=== PATIENT | male | born 1990 | race Caucasian/White ===

== ENCOUNTER 2022-04-09 04:30 | Emergency (ER) | payer OTHER, SELFPAY ==
[2022-04-09 04:38] VITALS: BP 151/100; PULSE 126; RESP 22; TEMP 37.5; O2SAT 96
[2022-04-09 05:16] LABS: Influenza A QL RT-PCR Positive (Negative); Influenza B QL RT-PCR Negative (Negative); SARS-CoV-2 RNA PCR Negative
--- NOTE | 2022-04-09 05:27 | ED.GENADULT ---
HPI - General Adult General Chief complaint: Upper Respiratory Infection Stated complaint: upper respiratory Time Seen by Provider: 04/09/22 05:20 History of Present Illness HPI narrative: Patient 31-year-old gentleman presents to the emergency department with chief complaint of flulike symptoms. Patient reports that on Friday he had a little bit of a sore/scratchy throat but on Friday started having body aches and fevers. The patient states he last took Tylenol around midnight and reports that he has had some sweats and chills. Patient reports this feels similar to whenever he has had COVID in the past. Related Data Allergies Allergy/AdvReac Type Severity Reaction Status Date / Time No Known Drug Allergies Allergy Unknown Unverified 08/23/14 03:39 Review of Systems Review of Systems: A 10 system review of systems was completed on the patient and is negative except for what is stated in the HPI. Nursing and ancillary documentation was reviewed. PMFSH Comments Prior history of leukemia COVID x2 Exam Narrative: GENERAL: Well-appearing, well-nourished, and in no acute distress. HEAD: Normocephalic, atraumatic. EYES: PERRLA and EOMI. ENT: Nares clear, no rhinorrhea or epistaxis. Mucous membranes moist. NECK: Supple. CHEST: Clear to auscultation. No respiratory distress. HEART: Regular rate and rhythm. No murmur heard. Normal peripheral pulses. ABDOMEN: Soft, nontender, nondistended, normal active bowel sounds. EXTREMITIES: Normal range of motion. No edema. SKIN: Warm, dry, no rash. NEURO: No focal deficits. Alert and oriented x3. PSYCH: Normal mood and affect. Course Course Emergency Course: Patient's heart rate has come down with IV fluids in the 1 teens. Laboratory studies show normal white blood cell count normal hemoglobin and normal platelet count. Patient received a gram of Tylenol IV and also received a liter of normal saline he is feeling somewhat better the patient was offered a prescription for Tamiflu but the patient has opted out against doing antivirals. Vital Signs Vital signs: Vital Signs Temperature 37.5 C 04/09/22 04:38 Pulse Rate 126 H 04/09/22 04:38 Respiratory Rate 22 H 04/09/22 04:38 Blood Pressure 151/100 H 04/09/22 04:38 Pulse Oximetry 96 04/09/22 04:38 Oxygen Delivery Room Air 04/09/22 04:38 Temperature 38.1 C H 04/09/22 06:23 Pulse Rate 126 H 04/09/22 04:38 Respiratory Rate 22 H 04/09/22 04:38 Blood Pressure 151/100 H 04/09/22 04:38 Pulse Oximetry 96 04/09/22 04:38 Oxygen Delivery Room Air 04/09/22 04:38 Medical Decision Making Vital Signs Vital Signs: Vital Signs Temperature 37.5 C 04/09/22 04:38 Pulse Rate 126 H 04/09/22 04:38 Respiratory Rate 22 H 04/09/22 04:38 Blood Pressure 151/100 H 04/09/22 04:38 Pulse Oximetry 96 04/09/22 04:38 Oxygen Delivery Room Air 04/09/22 04:38 Temperature 38.1 C H 04/09/22 06:23 Pulse Rate 126 H 04/09/22 04:38 Respiratory Rate 22 H 04/09/22 04:38 Blood Pressure 151/100 H 04/09/22 04:38 Pulse Oximetry 96 04/09/22 04:38 Oxygen Delivery Room Air 04/09/22 04:38 Lab Data 04/09/22 05:48 04/09/22 05:48 Labs: Lab Results 04/09/22 04/09/22 04/09/22 Range/Units 04:35 05:48 05:48 WBC 6.1 (4.5-10.0) K/mm3 RBC 5.05 (4.6-6.20) M/mm3 Hgb 16.0 (14.0-18.0) g/dL Hct 45.8 (42.0-52.0) % MCV 90.7 (80-100) fl MCH 31.7 (26-34) pg MCHC 34.9 (32-36) g/dl RDW 11.5 (11.5-14.5) % Plt Count 170 (150-375) k/mm3 MPV 10.8 H (7.4-10.4) fl Immature Gran % (Auto) 0.2 (0-0.5) % Neut % (Auto) 75.5 H (45.5-73.1) % Lymph % (Auto) 12.6 L (18.3-44.2) % [place] % (Auto) 9.4 H (2.6-8.5) % Eos % (Auto) 1.8 (0-4.4) % Baso % (Auto) 0.5 (0.2-1.2) % Lymph # (Auto) 0.76 L (0.9-3.2) K/mm3 [place] # (Auto) 0.6 (0.1-0.6) K/mm3 Eos # (Auto) 0.1 (0-0.3) K/mm3 Baso # (Auto) 0.0 (0.
[2022-04-09 05:59] LABS: Basophils Percent Auto 0.5 % (0.2-1.2); Eosinophils Absolute Auto 0.1 K/mm3 (0-0.3); Eosinophils Percent Auto 1.8 % (0-4.4); Hematocrit 45.8 % (42.0-52.0); Immature Granulocyte Absolute 0.01 K/mm3 (0.00-0.031); Immature Granulocyte Percent A 0.2 % (0-0.5); Lymphocytes Absolute Auto 0.76 K/mm3 (0.9-3.2); Lymphocytes Percent Auto 12.6 % (18.3-44.2); Mean Corpuscular HGB Conc 34.9 g/dl (32-36); Mean Corpuscular Hemoglobin 31.7 pg (26-34); Mean Corpuscular Volume 90.7 fl (80-100); Mean Platelet Volume 10.8 fl (7.4-10.4); Monocytes Absolute Auto 0.6 K/mm3 (0.1-0.6); Monocytes Percent Auto 9.4 % (2.6-8.5); Neutrophils Absolute Auto 4.6 K/mm3 (1.3-6.7); Neutrophils Percent Auto 75.5 % (45.5-73.1); Platelet Count Result 170 k/mm3 (150-375); Red Blood Count 5.05 M/mm3 (4.6-6.20); Red Cell Distribution Width 11.5 % (11.5-14.5); White Blood Count 6.1 K/mm3 (4.5-10.0)
[2022-04-09] MEDS: SODIUM CHLORIDE 0.9% IV 1,000 ML 999 ML IV CONT (06:06)
[2022-04-09 06:13] LABS: Alanine Aminotransferase 47 U/L (6-50); Albumin Level 4.9 g/dL (3.5-5.1); Alkaline Phosphatase 71 U/L (38-126); Anion Gap 11 mmol/L (8-16); Aspartate Amino Transferase 37 U/L (17-59); Bilirubin,Total 0.9 mg/dL (0.2-1.3); Blood Urea Nitrogen 10 mg/dL (9-20); Calcium 9.4 mg/dL (8.4-10.2); Carbon Dioxide 27 mmol/L (22-30); Chloride 97 mmol/L (98-107); Estimated CRCL calculation 107 ml/min; Estimated Glomerular Filt Rate > 60; Glucose 99 mg/dL (65-110); Potassium 3.9 mmol/L (3.4-5.0); Sodium 135 mmol/L (137-145)
[2022-04-09 06:23] VITALS: TEMP 38.1
[2022-04-09 06:52] VITALS: BP 115/76; PULSE 100; RESP 20; TEMP 37.6; O2SAT 100
== END 2022-04-09 06:54 | disposition home or self-care (01) ==
PROVIDERS: Emergency Provider Emergency Medicine; PCP Family Medicine
DX: J10.1 Influenza due to other identified influenza virus with other respiratory manifestations (principal); Z20.822 Contact with and (suspected) exposure to COVID-19; Z85.6 Personal history of leukemia; Z86.16 Personal history of COVID-19
CPT/HCPCS: 36415; 80053; 85025; 87636; 96365; 99284; J0131; J7030

== ENCOUNTER 2024-10-01 13:12 | Observation (INO) | payer OTHER, SELFPAY ==
[2024-10-01] VITALS (25 sets, daily range): BP systolic 99–130; BP diastolic 60–99; PULSE 83–166; RESP 13–31; TEMP 36.8–37.2; O2SAT 94–100; BMI 36.4
--- NOTE | ~2024-10-01 | XR_ITS ---
CHEST RADIOGRAPH, PA AND LATERAL CLINICAL HISTORY: palpitations . COMPARISON: None available TECHNIQUE: PA and lateral views of the chest. FINDINGS The cardiomediastinal silhouette is unremarkable. Increased interstitial markings within the right lung base for which prior scarring is suspected. The remainder of the lungs are clear. IMPRESSION: No focal infiltrate or effusion. Reviewed, dictated and finalized at location A.
--- NOTE | 2024-10-01 13:14 | ECG_ITS ---
Test Date: 2024-10-01 13:27:43 Measurements Intervals [place] Rate: 170 P: 0 [place]: 0 QRS: 47 QRSD: 72 T: -19 QT: 240 QTc: 405 Interpretive Statements ATRIAL FIBRILLATION WITH RAPID VENTRICULAR RESPONSE NONSPECIFIC T-WAVE ABNORMALITY No previous ECG available for comparison Electronically Signed On 10-01-2024 15:11:00 CDT by Jerrod Flannery M.D.
--- OUTSIDE RECORDS SUMMARY | 2024-10-01 13:14 | XMS_ITS | Referral Summary ---
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 Plant Production Worker Name Role Phone MocaBrian segovia Primary Care Provider Encounters Date Type Department Care Team Description 08/09/2024 11:30 AM CDT Office Visit [facility] Hand Surgery [address] [place] [phone] Harris Andrews MD De Quervain's disease (radial styloid tenosynovitis) (Primary Dx); Right carpal tunnel syndrome 08/03/2024 10:00 AM CDT Therapy [facility] Physical Therapy [address] [place] [phone] Right carpal tunnel syndrome; Left carpal tunnel syndrome 07/19/2024 8:14 AM CDT - 07/19/2024 11:59 PM CDT Hospital Encounter [facility] Di[facility] [address] [place] [address] Bilateral wrist pain Discharge Disposition: Discharge to home or self care 07/19/2024 8:15 AM CDT Office Visit [facility] Hand Surgery [address] [place] [phone] Harris Andrews MD Bilateral wrist pain (Primary Dx); Bilateral carpal tunnel syndrome; Right carpal tunnel syndrome; Left carpal tunnel syndrome; De Quervain's disease (radial styloid tenosynovitis) from Last 3 Months Allergies No known active allergies Medications amLODIPine (NORVASC) 5 mg tabletIndication s:Hypertension, essential Take 1 tablet (5 mg total) by mouth daily 90 tablet 3 06/29/2024 Active Active Problems Problem Noted Date Diagnosed Date Left carpal tunnel syndrome 07/19/2024 Right carpal tunnel syndrome 07/19/2024 De Quervain's disease (radial styloid tenosynovi tis) 07/19/2024 Routine physical examination 06/29/2024 Overview (06/29/2024): June 29, 2024 Hypertension, essential 06/29/2024 Overview (06/29/2024): New diagnosis: June 2024 Starting Norvasc AML (acute myeloid leukemia) in remission 2024 Overview (06/29/2024): Acute myelogenous leukemia, subtype M2, diagnosed in August 2009, 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 TREATMENT: Induction with 7 + 3; consolidation with 4 cycles of high-dose dave-C completed in January 2010 He had 5 year f/u with Oncology and has been released Immunizations Immunization Administration Dates Next Due Influenza, Split 03/05/2011 Influenza, Trivalent, IM (MDV) 02/16/2008 Influenza, Trivalent, Preser vative Free, Intramuscular 05/18/2012,04/13/2010 Influenza, Unspecified 06/29/2024(Deferr ed: Patient Refused),08/02/2023(Deferred: Patient Refused) Tdap 06/13/2024 Social History Tobacco Use Types Packs/Day Years Used Date Smoking Tobacco: Never Smokeless Tobacco: Never Tobacco Cessation:Counseling Given: Not Answered Alcohol Use Standard Drinks/Week Comments Yes 0 (1 standard drink = 0.6 oz pur e alcohol) AUDIT-C Answer Date Recorded Q1: How often do you have a drink containing alc ohol? 2-4 times a month 06/29/2024 Q2: How many drinks containi ng alcohol do you have on a typical day when you are drinking? 1 or 2 06/29/2024 Q3: How often do you have si x or more drinks on one occasion? 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 Gender Identity Not on file Sexual Orientation Not on file Last Filed Vital Signs Vital Sign Reading Time Taken Comments Blood Pressure 136/92 06/29/2024 11:00 AM AUTOMOBILE GLASS TECHNICIAN Pulse 79 06/29/2024 11:00 AM AUTOMOBILE GLASS TECHNICIAN Temperature 36.3 C (97.4 F) 06/29/2024 11:00 AM AUTOMOBILE GLASS TECHNICIAN Respiratory Rate 18 06/29/2024 11:00 AM AUTOMOBILE GLASS TECHNICIAN Oxygen Saturation 98% 06/29/2024 11:00 AM AUTOMOBILE GLASS TECHNICIAN Inhaled Oxygen Concentration - - Weight 107 kg (236 lb) 06/29/2024 11:00 AM AUTOMOBILE GLASS TECHNICIAN Height 172.7 cm (5' 8) 06/29/2024 11:00 AM AUTOMOBILE GLASS TECHNICIAN Body Mass Index 35.88 06/29/2024 11:00 AM AUTOMOBILE GLASS TECHNICIAN Plan of Treatment Not on file Procedures Procedure Name Priority Date/Time Associated Diagnosis Comments XR WRIST RIGHT 3 OR MORE VIEWS Schedule Routine, Read Routine (OP Routine) 07/19/2024 8:19 AM CDT Bilateral wrist pain XR WRIST LEFT 3 OR MORE VIEWS Schedule Routine, Read Routine (OP Routine) 07/19/2024 8:19 AM CDT Bilateral wrist pain CT INJECTION 1 TENDON SHEATH/LIGAMENT APONEUROSIS Routine 07/19/2024 8:15 AM CDT Right carpal tunnel syndrome Left carpal tunnel syndrome HEPATITIS C ANTIBODY Routine 06/29/2024 11:53 AM AUTOMOBILE GLASS TECHNICIAN Need for hepatitis C screening test from Last 3 Months or Most Recently Relevant to Health Maintenance Results * XR Wrist Right 3 or More Views (07/19/2024 8:19 AM CDT) Anatomical Region Laterality Modality Upper Extremities, Wrist Right Compute d Radiography 07/23/2024 5:39 AM CDT Narrative 07/23/2024 5:39 AM CDT EXAM DESCRIPTION: XR WRIST RIGHT 3 OR MORE VIEWS REASON FOR STUDY: Right wrist pain TECHNIQUE: AP lateral and oblique radiographic view(s) of the right wrist . COMPARISON: None FINDINGS: BONES/JOINTS: There is no acute fracture, malalignment or osseous abnormality. The joint spaces are normal. SOFT TISSUES: Within normal limits. IMPRESSION: No acute osseous abnormality. THIS IS AN ELECTRONICALLY VERIFIED FINAL REPORT 07/23/2024 5:39 AM - Electronically signed by Harris Andrews T: Report ID: [id number] Reading Location: [place] [address] Procedure Note Harris Andrews MD - 07/23/2024 EXAM DESCRIPTION: XR WRIST RIGHT 3 OR MORE VIEWS REASON FOR STUDY: Right wrist pain TECHNIQUE: AP lateral and oblique radiographic view(s) of the rightwrist . COMPARISON: None FINDINGS: BONES/JOINTS: There is no acute fracture, malalignment orosseous abnormality. The joint spaces are normal. SOFT TISSUES: Within normal limits. IMPRESSION: No acute osseous abnormality. THIS IS AN ELECTRONICALLY VERIFIED FINAL REPORT 07/23/2024 5:39 AM - Electronically signed by Harris Andrews T: Report ID: [id number] Reading Location: [place] [address] Harris Andrews MD IMG XR PROCEDURES Final Result * XR Wrist Left 3 or More Views (07/19/2024 8:19 AM CDT) Anatomical Region Laterality Modality Upper Extremities, Wrist Left Compute d Radiography 07/23/2024 5:39 AM CDT Narrative 07/23/2024 5:39 AM CDT EXAM DESCRIPTION: XR WRIST LEFT 3 OR MORE VIEWS REASON FOR STUDY: Left wrist pain TECHNIQUE: AP lateral and oblique radiographic view(s) of the left wrist . COMPARISON: None FINDINGS: BONES/JOINTS: There is no acute fracture, malalignment or osseous abnormality. The joint spaces are normal. SOFT TISSUES: Within normal limits. IMPRESSION: No acute osseous abnormality. THIS IS AN ELECTRONICALLY VERIFIED FINAL REPORT 07/23/2024 5:39 AM - Electronically signed by Harris Andrews TL T: Report ID: [id number] Reading Location: [place] [address] Procedure Note Harris Andrews MD - 07/23/2024 EXAM DESCRIPTION: XR WRIST LEFT 3 OR MORE VIEWS REASON FOR STUDY: Left wrist pain TECHNIQUE: AP lateral and oblique radiographic view(s) of the left wrist. COMPARISON: None FINDINGS: BONES/JOINTS: There is no acute fracture, malalignment orosseous abnormality. The joint spaces are normal. SOFT TISSUES: Within normal limits. IMPRESSION: No acute osseous abnormality. THIS IS AN ELECTRONICALLY VERIFIED FINAL REPORT 07/23/2024 5:39 AM - Electronically signed by Harris Andrews TL T: Report ID: [id number] Reading Location: [place] [address] Harris Andrews MD IMG XR PROCEDURES Final Result * CT INJECTION 1 TENDON SHEATH/LIGAMENT APONEUROSIS (07/19/2024 8:15 AM CDT) Harris Jose MD - 07/19/2024 8:15 AM CDT Harris Andrews MD 07/19/2024 9:06 AM De Queraldo's injection: R extensor compartment 1 Performed by: Harris Andrews MD Authorized by: Harris Andrews MD De Quervain's Injection: Consent Given by: Patient Site marked: the procedure site was marked Timeout: prior to procedure the correct patient, procedure, and site was verified Verbal consent obtained?: Yes Supporting Documentation: Indications: Tendon swelling and pain Procedure Details: Condition: de Quervain's Site: R extensor compartment 1 Prep: patient was prepped and draped in usual sterile fashion Needle Size: 22 G Approach: Radial Ultrasound guidance: No Medications: 80 mg triamcinolone 40 mg/mL; 6 mL lidocaine 10 mg/mL (1 %) us Harris Andrews MD IN CLINIC/BEDSIDE ORDERA BLES Final Result * Hepatitis C antibody Blood (06/29/2024 11:53 AM AUTOMOBILE GLASS TECHNICIAN) Hep C Ab Nonreactive Nonreactive Comment: Antibodies to HCV not detected. Does NOT exclude the possibility of recent exposure to HCV. Current interpretive data was last revised on 22 Interpretive Data Nonreactive: Antibodies to HCV not detected. Does NOT exclude the possibility of recent exposure to HCV. Equivocal: Equivocal for HCV antibodies. Supplemental molecular testing will be automatically performed to determine infection status in accordance with current CDC screening recommendations. Reactive: Positive for HCV antibodies. This may represent current or past HCV infection. Supplemental molecular testing will be automatically performed to determine current infection status in accordance with current CDC screening recommendations. Interpretive data was last revised on 2019. Blood 06/29/2024 11:5 3 AM AUTOMOBILE GLASS TECHNICIAN 06/29/2024 2:36 PM AUTOMOBILE GLASS TECHNICIAN us Brian Velasco DO LAB MICROBIOLOGY - GEN ERAL ORDERABLES Final Result ZANDRA [id number] [facility] Department [place] [address] from Last 3 Months or Most Recently Relevant to Health Maintenance Insurance [employer] [facility] [employer] Address: [facility] [address] [place] [address] Care Teams Plant Production Worker Relationship Specialty Start Date End Date Brian Velasco DO [address] [place] [id number] PCP - General Family Medicine 05/19/24
--- OUTSIDE RECORDS SUMMARY | 2024-10-01 13:14 | XMS_ITS | Clinical Summary ---
Author Organization [facility] Address [address] [place] [address] Care Team Providers Care Cis Coordinator Name Role Phone Brian Velasco Primary Care Provider Allergies No known active allergies Medications amLODIPine [...] f/u with Oncology and has been released Encounters Date Type Department Care Team Description 08/09/2024 11:30 AM CDT Office Visit [facility] Hand Surgery [address] [place] [address] [address] [place] [address] Harris Andrews MD De Quervain's disease (radial styloid tenosynovitis) (Primary Dx); Right carpal tunnel syndrome 08/03/2024 10:00 AM CDT Therapy [facility] OP Physical Therapy [address] [place] [address] [place] [phone] Right carpal tunnel syndrome; Left carpal tunnel syndrome 07/19/2024 8:15 AM CDT Office Visit [facility] Hand Surgery [address] [place] [address] [address] [place] [address] Harris Andrews MD Bilateral wrist pain (Primary Dx); Bilateral carpal tunnel syndrome; Right carpal tunnel syndrome; Left carpal tunnel syndrome; De Quervain's disease (radial styloid tenosynovitis) 07/19/2024 8:14 AM CDT - 07/19/2024 11:59 PM CDT Hospital Encounter [facility] Diag Imaging [address] [place] [phone] Bilateral wrist pain Discharge Disposition: Discharge to home or self care from Last 3 Months Immunizations Immunization Administration Dates Next Due Influenza, Split 03/05/2011 Influenza, Trivalent, IM (MDV) 02/16/2008 Influenza, Trivalent, Preser vative Free, Intramuscular 05/18/2012,04/13/2010 Influenza, Unspecified 06/29/2024(Deferr ed: Patient Refused),08/02/2023(Deferred: Patient Refused) Tdap 06/13/2024 Surgical History Surgery Date Site/Laterality Comments OTHER SURGICAL HISTORY 2009 leukemia - AML: Chemotherapy HERNIA REPAIR Medical History Medical History Date Comments Hx Other Medical leukemia - AML Family History Medical History Relation Name Comments Heart attack Father Hypertension Father Diabetes Mother Hypertension Mother Relation Name Status Comments Father Alive Mother Alive Social History Tobacco Use Types Packs/Day Years [...] on file 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 Gender Identity Not on file Sexual Orientation Not on file Obstetrics History Last Filed Vital Signs Vital Sign Reading Time Taken Comments Blood Pressure 136/92 06/29/2024 11:00 AM TRUCK SHOP SUPERVISOR Pulse 79 06/29/2024 11:00 AM TRUCK SHOP SUPERVISOR Temperature 36.3 C (97.4 F) 06/29/2024 11:00 AM TRUCK SHOP SUPERVISOR Respiratory Rate 18 06/29/2024 11:00 AM TRUCK SHOP SUPERVISOR Oxygen Saturation 98% 06/29/2024 11:00 AM TRUCK SHOP SUPERVISOR Inhaled Oxygen Concentration - - Weight 107 kg (236 lb) 06/29/2024 11:00 AM TRUCK SHOP SUPERVISOR Height 172.7 cm (5' 8) 06/29/2024 11:00 AM TRUCK SHOP SUPERVISOR Body Mass Index 35.88 06/29/2024 11:00 AM TRUCK SHOP SUPERVISOR Plan of Treatment Health Maintenance Due Date Last Done Comments Varicella Vaccines (1 of 2 - 13+ 2-dose series) 07/21/2003 Pneumococcal vaccine <65 (1 of 2 - PCV) 2009 Zoster Vaccine (1 of 2) 2009 Covid-19 Vaccine ( season) 2024 10/23/2021, 07/26/2020, 07/04/2020 Influenza Vaccine (Season Ended) 2025 05/18/2012, 03/05/2011, 04/13/2010, Additional history exists Depression Screening 06/29/2025 06/29/2024 Regular Well Visit/Exam 18-64 06/29/2025 06/29/2024, 06/29/2024 DTaP/Tdap/Td Vaccine (2 - Td or Tdap) 06/13/2034 06/13/2024 Hepatitis B Screening Completed 06/29/2024 Hepatitis C Screening Completed 06/29/2024 HPV Vaccines Aged Out No longer eligi ble based on patient's age to complete this topic Procedures Procedure Name Priority Date/Time Associated Diagnosis Comments XR WRIST RIGHT 3 OR MORE VIEWS Schedule Routine, Read Routine (OP Routine) 07/19/2024 8:19 AM CDT Bilateral wrist pain XR WRIST LEFT 3 OR MORE VIEWS Schedule Routine, Read Routine (OP Routine) 07/19/2024 8:19 AM CDT Bilateral wrist pain [place] INJECTION 1 TENDON SHEATH/LIGAMENT APONEUROSIS Routine 07/19/2024 8:15 AM CDT Right carpal tunnel syndrome Left carpal tunnel syndrome HEPATITIS C ANTIBODY Routine 06/29/2024 11:53 AM TRUCK SHOP SUPERVISOR Need for hepatitis C screening test from [...] by Harris Andrews TL T: Report ID: [id number] Reading Location: [place] [address] Procedure Note Harris Andrews MD - 07/23/2024 [...] by Harris Andrews TL T: Report ID: [id number] Reading Location: [place] [address] Harris Andrews MD IMG XR PROCEDURES Final [...] by Harris Andrews TL T: Report ID: [id number] Reading Location: [place] [address] Procedure Note Harris Andrews MD - 07/23/2024 [...] by Harris Andrews TL T: Report ID: [id number] Reading Location: [place] [address] Harris Andrews MD IMG XR PROCEDURES Final Result * [place] INJECTION 1 TENDON SHEATH/LIGAMENT APONEUROSIS (07/19/2024 8:15 AM CDT) Narrative Harris Andrews MD - 07/19/2024 8:15 AM CDT Harris Andrews MD 07/19/2024 9:06 AM De Quervain's injection: R extensor compartment 1 Performed by: Harris Andrews MD Authorized by: Harris Andrews MD De Queraldo's Injection: Consent Given by: Patient Site marked: [...] 6 mL lidocaine 10 mg/mL (1 %) Harris Andrews MD IN CLINIC/BEDSIDE ORDERA BLES Final Result * Hepatitis C antibody Blood (06/29/2024 11:53 AM TRUCK SHOP SUPERVISOR) Hep C Ab Nonreactive Nonreactive Comment: Antibodies [...] on 2019. Blood 06/29/2024 11:5 3 AM TRUCK SHOP SUPERVISOR 06/29/2024 2:36 PM TRUCK SHOP SUPERVISOR Brian Velasco DO LAB MICROBIOLOGY - GEN ERAL ORDERABLES Final Result ZANDRA [facility] [address] [facility] Department [place] [address] from Last 3 Months or Most Recently Relevant to Health Maintenance Insurance [facility] [employer] Address: [facility] [id number] [place] [phone] Care Teams Cis Coordinator Relationship Specialty Start Date End Date Brian Velasco DO [address] [place] [id number] PCP - General Family Medicine 05/19/24
[2024-10-01] MEDS: SODIUM CHLORIDE 0.9% IV 1,000 ML 999 ML IV CONT (13:49)
[2024-10-01] MEDS: dilTIAZem HCl INJ 25 MG/5 ML VIAL 10 MG IV PUSH ×2 (13:50→15:51)
[2024-10-01 13:52] LABS: Basophils Percent Auto 0.4 % (0.2-1.2); Eosinophils Absolute Auto 0.1 K/mm3 (0-0.3); Eosinophils Percent Auto 0.8 % (0-4.4); Hematocrit 47.4 % (42.0-52.0); Hemoglobin 15.7 g/dL (14.0-18.0); Immature Granulocyte Absolute 0.03 K/mm3 (0.00-0.031); Immature Granulocyte Percent A 0.4 % (0-0.5); Lymphocytes Absolute Auto 1.64 K/mm3 (0.9-3.2); Lymphocytes Percent Auto 19.2 % (18.3-44.2); Mean Corpuscular HGB Conc 33.1 g/dl (32-36); Mean Corpuscular Hemoglobin 31.3 pg (26-34); Mean Corpuscular Volume 94.6 fl (80-100); Mean Platelet Volume 10.6 fl (7.4-10.4); Monocytes Absolute Auto 0.4 K/mm3 (0.1-0.6); Monocytes Percent Auto 5.2 % (2.6-8.5); Neutrophils Absolute Auto 6.3 K/mm3 (1.3-6.7); Platelet Count Result 241 k/mm3 (150-375); Red Blood Count 5.01 M/mm3 (4.6-6.20); Red Cell Distribution Width 12.4 % (11.5-14.5); White Blood Count 8.5 K/mm3 (4.5-10.0)
--- OUTSIDE RECORDS SUMMARY | 2024-10-01 13:59 | XMS_ITS | Referral Summary ---
Author Organization [facility] Address [address] [place] [address] Care Team Providers Care Neurodiagnostic Technologist Name Role Phone HamlinBrian segovia Primary Care Provider Encounters Date Type Department Care Team Description 08/09/2024 11:30 AM CDT Office Visit [facility] Medical [facility] Hand Surgery [address] [place] [phone] Harris Andrews MD De Quervain's disease (radial styloid tenosynovitis) (Primary Dx); Right carpal tunnel syndrome 08/03/2024 10:00 AM CDT Therapy [facility] OP Physical Therapy [address] [place] [id number] Right carpal tunnel syndrome; Left carpal tunnel syndrome 07/19/2024 8:14 AM CDT - 07/19/2024 11:59 PM CDT Hospital Encounter [facility] Diag Imaging [address] [place] [phone] Bilateral wrist pain Discharge Disposition: Discharge to home or self care 07/19/2024 8:15 AM CDT Office Visit [facility] Medical [facility] Hand Surgery [address] [place] [phone] Harris Andrews MD Bilateral wrist pain (Primary [...] on file 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 Gender Identity Not on file Sexual Orientation Not on file Last Filed Vital Signs Vital Sign Reading Time Taken Comments Blood Pressure 136/92 06/29/2024 11:00 AM INSTRUMENT MAKER AND REPAIRER Pulse 79 06/29/2024 11:00 AM INSTRUMENT MAKER AND REPAIRER Temperature 36.3 C (97.4 F) 06/29/2024 11:00 AM INSTRUMENT MAKER AND REPAIRER Respiratory Rate 18 06/29/2024 11:00 AM INSTRUMENT MAKER AND REPAIRER Oxygen Saturation 98% 06/29/2024 11:00 AM INSTRUMENT MAKER AND REPAIRER Inhaled Oxygen Concentration - - Weight 107 kg (236 lb) 06/29/2024 11:00 AM INSTRUMENT MAKER AND REPAIRER Height 172.7 cm (5' 8) 06/29/2024 11:00 AM INSTRUMENT MAKER AND REPAIRER Body Mass Index 35.88 06/29/2024 11:00 AM INSTRUMENT MAKER AND REPAIRER Plan of Treatment Not on file Procedures Procedure Name Priority Date/Time Associated Diagnosis Comments XR WRIST RIGHT 3 OR MORE VIEWS Schedule Routine, Read Routine (OP Routine) 07/19/2024 8:19 AM CDT Bilateral wrist pain XR WRIST LEFT 3 OR MORE VIEWS Schedule Routine, Read Routine (OP Routine) 07/19/2024 8:19 AM CDT Bilateral wrist pain NE INJECTION 1 TENDON SHEATH/LIGAMENT APONEUROSIS Routine 07/19/2024 8:15 AM CDT Right carpal tunnel syndrome Left carpal tunnel syndrome HEPATITIS C ANTIBODY Routine 06/29/2024 11:53 AM INSTRUMENT MAKER AND REPAIRER Need for hepatitis C screening test from [...] signed by Harris Andrews T: Report ID: [id number] Reading Location: [place] [address] Procedure Note Harris Andrews MD - 07/23/2024 [...] signed by Harris Andrews T: Report ID: [id number] Reading Location: [place] [address] Harris Andrews MD IMG XR PROCEDURES Final [...] by Harris Andrews TL T: Report ID: [id number] Reading Location: [place] [address] Procedure Note Harris Andrews MD - 07/23/2024 [...] by Harris Andrews TL T: Report ID: [id number] Reading Location: [place] [address] Harris Andrews MD IMG XR PROCEDURES Final Result * NE INJECTION 1 TENDON SHEATH/LIGAMENT APONEUROSIS (07/19/2024 8:15 [...] Hepatitis C antibody Blood (06/29/2024 11:53 AM INSTRUMENT MAKER AND REPAIRER) Hep C Ab Nonreactive Nonreactive Comment: Antibodies [...] on 2019. Blood 06/29/2024 11:5 3 AM INSTRUMENT MAKER AND REPAIRER 06/29/2024 2:36 PM INSTRUMENT MAKER AND REPAIRER us Brian Velasco DO LAB MICROBIOLOGY - GEN ERAL ORDERABLES Final Result ZANDRA [address] [facility] Department [place] [address] from Last 3 Months or Most Recently Relevant to Health Maintenance Insurance [employer] Address: [facility] [id number] [place] [address] Care Teams Neurodiagnostic Technologist Relationship Specialty Start Date End Date Brian Velasco DO [address] [place] [id number] PCP - General Family Medicine 05/19/24
--- OUTSIDE RECORDS SUMMARY | 2024-10-01 13:59 | XMS_ITS | Clinical Summary ---
Author Organization [facility] Address [address] [place] [address] Care Team Providers Care Nuclear Plant Instrument Technician Name Role Phone Brian Velasco Primary Care [...] Description 08/09/2024 11:30 AM CDT Office Visit [facility] Hand Surgery [address] [place] [address] [address] [place] [phone] Harris Andrews MD De Quervain's disease (radial styloid tenosynovitis) (Primary Dx); Right carpal tunnel syndrome 08/03/2024 10:00 AM CDT Therapy [facility] OP Physical Therapy [address] [place] [address] [place] [id number] Right carpal tunnel syndrome; Left carpal tunnel syndrome 07/19/2024 8:15 AM CDT Office Visit [facility] Hand Surgery [address] [place] [address] [address] [place] [phone] Harris Andrews MD Bilateral wrist pain (Primary Dx); Bilateral carpal tunnel syndrome; Right carpal tunnel syndrome; Left carpal tunnel syndrome; De Quervain's disease (radial styloid tenosynovitis) 07/19/2024 8:14 AM CDT - 07/19/2024 11:59 PM CDT Hospital Encounter [facility] Diag Imaging [address] [place] [id number] Bilateral wrist pain Discharge Disposition: Discharge to [...] on file Legal Sex Male 12:16 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 Gender Identity Not on file Sexual Orientation Not on file Obstetrics History Last Filed Vital Signs Vital Sign Reading Time Taken Comments Blood Pressure 136/92 06/29/2024 11:00 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 Pulse 79 06/29/2024 11:00 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 Temperature 36.3 C (97.4 F) 06/29/2024 11:00 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 Respiratory Rate 18 06/29/2024 11:00 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 Oxygen Saturation 98% 06/29/2024 11:00 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 Inhaled Oxygen Concentration - - Weight 107 kg (236 lb) 06/29/2024 11:00 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 Height 172.7 cm (5' 8) 06/29/2024 11:00 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 Body Mass Index 35.88 06/29/2024 11:00 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 Plan of Treatment Health Maintenance Due Date [...] 07/19/2024 8:19 AM CDT Bilateral wrist pain SD INJECTION 1 TENDON SHEATH/LIGAMENT APONEUROSIS Routine 07/19/2024 8:15 AM CDT Right carpal tunnel syndrome Left carpal tunnel syndrome HEPATITIS C ANTIBODY Routine 06/29/2024 11:53 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 Need for hepatitis C screening test from [...] by Harris Andrews TL T: Report ID: [id number] Reading Location: [place] [address] Procedure Note Harris Andrews MD - 07/23/2024 [...] by Harris Andrews TL T: Report ID: [id number] Reading Location: [place] [address] Harris Andrews MD IMG XR PROCEDURES Final [...] by Harris Andrews TL T: Report ID: [id number] Reading Location: [place] [address] Procedure Note Harris Andrews MD - 07/23/2024 [...] by Harris Andrews TL T: Report ID: [id number] Reading Location: [place] [address] Harris Andrews MD IMG XR PROCEDURES Final Result * SD INJECTION 1 TENDON SHEATH/LIGAMENT APONEUROSIS (07/19/2024 8:15 [...] Hepatitis C antibody Blood (06/29/2024 11:53 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) Hep C Ab Nonreactive Nonreactive Comment: Antibodies [...] on 2019. Blood 06/29/2024 11:5 3 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 06/29/2024 2:36 PM PROPERTY PORTFOLIO OFFICER Brian Velasco DO LAB MICROBIOLOGY - GEN ERAL ORDERABLES Final Result ZANDRA [facility] [address] [facility] Department [place] [address] from Last 3 Months or Most Recently Relevant to Health Maintenance Insurance [employer] Address: [facility] [id number] [place] [phone] Care Teams Nuclear Plant Instrument Technician Relationship Specialty Start Date End Date Brian Velasco DO [address] [place] [phone] PCP - General Family Medicine 05/19/24
[2024-10-01 14:01] LABS: Alanine Aminotransferase 46 U/L (6-50); Albumin Level 4.7 g/dL (3.5-5.1); Alkaline Phosphatase 75 U/L (38-126); Anion Gap 9 mmol/L (4-12); Aspartate Amino Transferase 37 U/L (17-59); Bilirubin,Total 0.7 mg/dL (0.2-1.3); Blood Urea Nitrogen 12 mg/dL (9-20); Calcium 9.4 mg/dL (8.4-10.2); Carbon Dioxide 25 mmol/L (22-30); Chloride 104 mmol/L (98-107); Estimated CRCL calculation 142 ml/min; Estimated Glomerular Filt Rate > 60; Glucose 133 mg/dL (65-110); Lipase 96 U/L (23-300); Sodium 138 mmol/L (137-145)
[2024-10-01 14:06] LABS: INR 0.9; Partial Thromboplastin Time 21.9 Seconds (22.3-36.8); Prothrombin Time 12.9 Seconds (11.1-14.7)
[2024-10-01 14:13] LABS: Troponin I < 0.012 ng/mL (0.000-0.034)
[2024-10-01] MEDS: dilTIAZem 100 MG/100 ML 100 MG/100 ML BAG IV CONT (14:20)
[2024-10-01 14:23] LABS: D Dimer < 0.27 ug/mL (<0.48)
--- NOTE | 2024-10-01 14:42 | ED_ITS ---
HPI - Arrhythmia/Palpitations General Chief Complaint: Arrhythmia/Palpitations Stated Complaint: heart is pounding Time Seen by Provider: 10/01/24 13:43 Source: patient Mode of arrival: ambulatory Limitations: no limitations History of Present Illness HPI narrative: This is a 34 year old male that presents to the ER for heart palpitations. Reports over the last couple of weeks he has felt fatigued, tired. He does also have a . Reports when he woke up today he felt unwell, lightheaded, like his heart was pounding. He noted his heart rate was elevated on a home pulse oximeter. Reports some shortness of breath. Denies chest pain. Related Data Allergies Allergy/AdvReac Type Severity Reaction Status Date / Time No Known Drug Allergies Allergy Unknown Other Verified 10/01/24 13:49 Review of Systems 2 Review of Systems: CONSTITUTIONAL: Denies fever CARDIOVASCULAR: Reports palpitations. Denies chest pain RESPIRATORY: Reports dyspnea. All systems reviewed & are unremarkable except as noted in HPI and below PMFSH Past Medical History Medical History (Updated 10/01/24 @ 16:13 by Tanesha Gongora PA-C) History of hypertension Exam 2 Narrative: GENERAL: Well-appearing, well-nourished, and in no acute distress. HEAD: Normocephalic, atraumatic. EYES: EOMI. ENT: Nares clear, no rhinorrhea or epistaxis. Mucous membranes moist. Oropharynx without tonsillar hypertrophy exudate or other lesions. NECK: Supple. No adenopathy or masses. CHEST: Clear to auscultation. No respiratory distress. No wheezes, rales or rhonchi HEART: Irregularly irregular. No murmur heard. Normal peripheral pulses. EXTREMITIES: Normal range of motion. No edema. SKIN: Warm, dry, no rash. NEURO: No focal deficits. Alert and oriented x3. PSYCH: Normal mood and affect Course Course Emergency Course: patient updated on his workup and need for admission Consultations Consultation #1: Spoke with hospitalist about patient and workup who accepts admission. Will place consult for Cardiology Date: 10/01/24 Vital Signs Vital signs: Vital Signs Temperature 98.2 F 10/01/24 13:25 Pulse Rate 89 10/01/24 13:25 Respiratory Rate 16 10/01/24 13:25 Blood Pressure 127/97 H 10/01/24 13:25 Pulse Oximetry 100 10/01/24 13:25 Temperature 98.2 F 10/01/24 13:25 Pulse Rate 122 H 10/01/24 16:44 Respiratory Rate 15 10/01/24 16:44 Blood Pressure 104/60 10/01/24 16:44 Pulse Oximetry 96 10/01/24 16:44 MDM - Arrhythmia/Palpitations MDM Narrative Medical decision making narrative: Patient presents to the emergency department for palpitations, feeling unwell. In to be AFib with RVR with rates in the 170s to 180s upon arrival. No previous history of this. Given diltiazem push and started on a drip. Blood pressure is stable. Cbc and metabolic panel without concerning findings. TSH is normal. D-dimer is not elevated. Baseline troponin is not elevated. Chest x-ray without acute cardiopulmonary abnormality. Patient's heart rate now in the 110s to 120s. Will be admitted for further management. Spoke with hospitalist about patient and workup who accepts admission. Will place consult for Cardiology Differential Diagnosis Differential diagnosis: Likely palpitations, anxiety, sinus tachycardia, artial fibrillation, artial flutter and supraventricular tachycardia Lab Data Attestation: I reviewed the patient's lab results. 10/01/24 13:45 10/01/24 13:45 Labs: Lab Results 10/01/24 Range/Units 13:45 WBC 8.5 (4.5-10.0) K/mm3 RBC 5.01 (4.6-6.20) M/mm3 Hgb 15.7 (14.0-18.0) g/dL Hct 47.4 (42.0-52.0) % MCV 94.6 (80-100) fl MCH 31.3 (26-34) pg MCHC 33.1 (32-36) g/dl RDW 12.4 (11.5-14.5) % Plt Count 241 (150-375) k/mm3 MPV 10.6 H (7.4-10.4) fl Immature Gran % (Auto) 0.4 (0-0.5) % Neut % (Auto) 74.0 H (45.5-73.1) % Lymph % (Auto) 19.2 (18.3-44.2) % Sabine % (Auto) 5.2 (2.6-8.5) % Eos % (Auto) 0.8 (0-4.4) % Baso % (Auto) 0.4 (0.2-1.2) % Lymph # (Auto) 1.64 (0.9-3.2) K/mm3 Sabine # (Auto) 0.4 (0.1-0.6) K/mm3 Eos # (Auto) 0.1 (0-0.3) K/mm3 Baso # (Auto) 0.0 (0.0-0.1) K/mm3 Abs Immat Gran (auto) 0.03 (0.00-0.031) K/mm3 Absolute Neuts (auto) 6.3 (1.3-6.7) K/mm3 Absolute Nucleated RBC 0.000 (0.0-0.012) K/mm3 Nucleated RBC % 0.0 (0.0-0.2) % PT 12.9 (11.1-14.7) Seconds INR 0.9 APTT 21.9 L (22.3-36.8) Seconds D-Dimer < 0.27 (<0.48) ug/mL Sodium 138 (137-145) mmol/L Potassium 4.0 (3.4-5.0) mmol/L Chloride 104 (98-107) mmol/L Carbon Dioxide 25 (22-30) mmol/L Anion Gap 9 (4-12) mmol/L BUN 12 (9-20) mg/dL Creatinine 0.79 (0.7-1.3) mg/dL Estim Creat Clear Calc 142 ml/min Estimated GFR > 60 (59 - ) Glucose 133 H (65-110) mg/dL Calcium 9.4 (8.4-10.2) mg/dL Total Bilirubin 0.7 (0.2-1.3) mg/dL AST 37 (17-59) U/L ALT 46 (6-50) U/L Alkaline Phosphatase 75 (38-126) U/L Troponin I < 0.012 (0.000-0.034) ng/mL Total Protein 8.0 (6.3-8.2) g/dL Albumin 4.7 (3.5-5.1) g/dL Lipase 96 (23-300) U/L TSH (Reflex) 0.851 (0.465-4.68) uIU/mL Imaging Data Radiologist's impression: ITS Impressions Chest X-Ray 10/01/24 14:22 IMPRESSION: No focal infiltrate or effusion. ECG Data EKG #1: ECG completion date: 10/01/24 EKG Interpretation: atrial fibrillation (with RVR), no ST changes and normal QT Critical Care Time Critical Care Time Critical Care Time: Yes Total Critical Care Time: 35 Discharge Plan Discharge Clinical Impression: Atrial fibrillation with rapid ventricular response Patient Disposition: Still a Patient Condition: Serious
[2024-10-01 14:58] LABS: Thyroid Stimulating Hormone Reflex 0.851 uIU/mL (0.465-4.68)
--- NOTE | 2024-10-01 16:10 | PM.IMHP ---
H&P: HPI History of Present Illness Date/Time: 10/01/24 18:00 Chief Complaint: Palpitations. 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 Shortly after getting up this morning he started to experience palpitations which he describes as an irregular heartbeat with ?frequent fluctuations.? Overall he was just not feeling well with that and reports some feelings of lightheadedness so he went to lie down for a bit. After couple of hours he got up but he was still having the palpitations. checked his vital signs and his blood pressure was about 100/70 which is lower than what he typically runs. Pulse was variable in the low 100s up to 125 beats per minute. With further questioning he does report having intermittent episodes similar to the fluctuating heart rate over the past year so however that has been rare and is self-limiting, usually lasting only 5 minutes or so. He and his have a at home and he admits that he has not been sleeping great. At baseline he drinks 1 monster drink a day but he has 2 on occasion depending on how he has slept overnight. Rare alcohol use. No known history of thyroid disease, sleep apnea (endorses snoring), or history of chemotherapy-induced cardiotoxicity. He has not had any exertional chest pain and has never had a stress test though he goes on to say that his father had his 1st DE in his early 40s. In the ED: He was in rapid atrial fibrillation with a rate of 160 on arrival. Blood pressure was 127/97. CMP, CBC, and TSH were within normal limits and troponin was undetectable. EKG showed atrial fibrillation with rapid ventricular response with a rate of 170 and nonspecific T-wave abnormalities. He received a diltiazem bolus with some improvement his rate and has been started on a diltiazem drip. He is being admitted to the IMU in this setting for further treatment and workup. Review of Systems Review of Systems: 12 systems were reviewed and are negative except for as per HPI. [facility] Past Medical History Medical History Acute myeloid leukemia in remission since 2019 Hypertension Surgical History Surgical History (Updated 10/01/24 @ 23:18 by Annalisa Wan PA-C) History of hernia repair Family History Family History (Updated 10/01/24 @ 23:18 by Annalisa Wan PA-C) Other Heart disease Social History Social History Social History: Surrogate medical decision maker: Elda Harrison, spouse. Code status: Full code. Smoking status: Never smoker Second hand tobacco smoke exposure: Yes Alcohol intake: current Drinks per week: 0 Do You Feel Safe in your Home?: Yes Lack of Transportation: No Lack of Food: Never True Current Housing: I Have Housing Concerned About Future Housing: No Difficulty Paying Gas/Electric Bills: No Difficulty Paying for Meds: No Currently Unemployed: No Education: Associate Degree Difficulty w/ Childcare or Family Care: No Spiritual care concerns: No Meds Home Medications and Allergies Home Medications ?Medication ?Instructions ?Recorded ?Confirmed ?Type amlodipine 5 mg tablet 5 mg PO DAILY 10/01/24 10/01/24 History Allergies Allergy/AdvReac Type Severity Reaction Status Date / Time No Known Drug Allergies Allergy Unknown Other Verified 10/01/24 13:49 Vital Signs Vital Signs - 24 hr 10/01/24 13:25 10/01/24 13:44 10/01/24 14:04 Temperature 98.2 F Pulse Rate 89 160 H 141 H Respiratory Rate 16 17 Blood Pressure 127/97 H Pulse Oximetry 100 98 10/01/24 14:20 10/01/24 14:25 10/01/24 14:30 Temperature Pulse Rate 156 H 128 H 138 H Respiratory Rate 21 H 17 Blood Pressure 110/80 Pulse Oximetry 97 96 10/01/24 14:31 10/01/24 14:45 10/01/24 15:00 Temperature Pulse Rate 148 H 132 H 166 H Respiratory Rate 25 H 20 25 H Blood Pressure 120/99 H Pulse Oximetry 97 96 96 10/01/24 15:01 10/01/24 15:01 10/01/24 15:28 Temperature Pulse Rate 162 H 146 H 125 H Respiratory Rate 31 H 19 Blood Pressure 118/69 118/69 Pulse Oximetry 97 95 10/01/24 15:31 10/01/24 15:32 10/01/24 15:52 Temperature Pulse Rate 129 H 145 H 122 H Respiratory Rate 21 H 17 20 Blood Pressure 108/81 Pulse Oximetry 95 95 98 05/30/25 15:54 10/01/24 16:00 10/01/24 16:01 Temperature Pulse Rate 120 H 105 H 95 Respiratory Rate 13 18 23 H Blood Pressure 99/73 L 107/72 Pulse Oximetry 97 96 95 Exam Narrative: General: Nontoxic-appearing male in the semi-Nava position in bed in no acute distress. Weight: 102.5 kg. BMI: 36.5. HEENT: PERRL, EOMI. Sclera anicteric. Oral mucosa moist. Oropharynx clear. Neck: Supple. Respiratory: Lungs are clear to auscultation bilaterally. Cardiovascular: Irregularly irregular rate and rhythm. Gastrointestinal: Abdomen is soft, nontender, and nondistended with positive bowel sounds. Skin: Warm and dry. No rash or lesions on limited exam. Extremities: No cyanosis, clubbing, or edema. Radial and pedal pulses intact. Neurological: Alert. Cranial nerves 2-12 are grossly intact. No gross focal deficits to casual conversation. Psychiatric: Pleasant and cooperative with normal mood and affect. Judgment and insight intact. H&P: Results Labs Labs: Short CBC 10/01/24 Range/Units 13:45 WBC 8.5 (4.5-10.0) K/mm3 Hgb 15.7 (14.0-18.0) g/dL Hct 47.4 (42.0-52.0) % Plt Count 241 (150-375) k/mm3 BMP 10/01/24 13:45 Sodium 138 Potassium 4.0 Chloride 104 Carbon Dioxide 25 BUN 12 Creatinine 0.79 Glucose 133 H Calcium 9.4 Cardiac Enzymes 10/01/24 Range/Units 13:45 Troponin I < 0.012 (0.000-0.034) ng/mL Liver Function 10/01/24 Range/Units 13:45 Total Bilirubin 0.7 (0.2-1.3) mg/dL AST 37 (17-59) U/L ALT 46 (6-50) U/L Alkaline Phosphatase 75 (38-126) U/L Albumin 4.7 (3.5-5.1) g/dL Imaging Chest X-Ray 10/01/24 14:22 IMPRESSION: No focal infiltrate or effusion. Assessment and Plan Assessment and plan (1) Atrial fibrillation with rapid ventricular response: Code(s): I48.91 - Unspecified atrial fibrillation Status: Acute (2) Hypertension: Code(s): I10 - Essential (primary) hypertension Status: Acute Plan The patient presented to the emergency department for evaluation of pounding heart and lightheadedness this morning as detailed in HPI. Labs, imaging, EKG, and all reports were personally reviewed. He was found to be in rapid atrial fibrillation with rates as high as 170. He received a diltiazem bolus and was started on a drip with some improvement in his rate. There is no current indication for anticoagulation. Precipitating etiology is not entirely clear but may be related to lack of sleep and increased caffeine intake after the addition of a into the household. He was treated for AML greater than 5 years and has no history of chemotherapy related cardiotoxicity. TSH today is within normal limits. Check echocardiogram and [facility]. Ultimately he would benefit from an outpatient stress test given early-onset coronary artery disease in his father. His medications will be reviewed and resumed as appropriate. Findings and treatment plan were discussed with the patient. Questions were solicited and answered to satisfaction. The patient's medical management will be taken over by the hospitalist team in a.m. Quality VTE Prophylaxis VTE prophylaxis: pharmacologic ordered The patient has been admitted under observation status. Hospitalist MIPS Advance Care Plan I have confirmed that the patient's Advanced Care Plan is present, code status is documented, or surrogate decision maker is listed in patient medical record.: Yes Medication Reconciliation I have utilized all available resources to obtain, update and review the patients current medications (includes all prescriptions, OTC, herbals, cannabis, and nutritional supplements).: Yes
--- NOTE | 2024-10-01 16:40 | PC.NURSE ---
Dinner tray ordered for pt.
--- NOTE | 2024-10-01 17:06 | PC.NURSE ---
Called and requested for pts dinner tray to be sent to 214.
[2024-10-01 17:20] LABS: Troponin I < 0.012 ng/mL (0.000-0.034)
--- NOTE | 2024-10-01 18:10 | ADMGEN ---
This patient, Danye Harrison, was admitted to IMU Room 214-01 at 1726. Patient/family oriented to hospital policies and general routines including ID bracelet, bed and alarms, visiting hours, pain management, procedures, bathroom and other care routines, personal items, smoking policy, room service/diet, and visiting hours. Information on how to activate the Rapid Response Team has been discussed. Patient/Family are encouraged to report perceived risks to care and to ask questions if they do not understand what they are told or what they should do.
[2024-10-01] MEDS: dilTIAZem 100 MG/100 ML 100 MG/100 ML BAG 10 MG IV CONT (19:10)
[2024-10-02] VITALS (16 sets, daily range): BP systolic 104–144; BP diastolic 73–86; PULSE 65–141; RESP 14–18; TEMP 36.6–37; O2SAT 97–100
--- NOTE | 2024-10-02 | ECHO_ITS ---
Patient Info Name: Dayne Harrison Age: 34 years : 1990 Gender: Male Ht: 70 in Wt: 242 lbs BSA: 2.37 m2 BP: 107 / 77 mmHg Technical Quality: Good Exam Date: 10/02/2024 9:58 AM Patient Status: I Admit Date: 10/01/2024 Exam Type: CA echo doppler color flow Complete two-dimensional, color flow and Doppler transthoracic echocardiogram is performed. Staff Referring Physician: Tanesha Gongora [facility] Air Boatswain: Bushra Perea Attending Provider: Moy Chairez Summary 1. Complete two-dimensional, color flow and Doppler transthoracic echocardiogram is performed. 2. Left ventricular chamber dimension is normal. 3. Left ventricular systolic function is normal, estimated at 60-65. 4. The left ventricular diastolic function is normal. 5. E/e' 7 is not elevated. 6. There is mild mitral valve regurgitation. 7. There is trace tricuspid valve regurgitation. 8. No pulmonary hypertension, estimated pulmonary arterial systolic pressure is 26 mmHg. Left Ventricle Left ventricular chamber dimension is normal. Left ventricular systolic function is normal, estimated at 60-65. The left ventricular diastolic function is normal. E/e' 7 is not elevated. Right Ventricle Right ventricular chamber dimension is normal. Right ventricular systolic function is normal. Left Atria Left atrial chamber dimension is normal. Right Atria Right atrial chamber dimension is normal. Aortic Valve The aortic valve is trileaflet. There is no aortic valve stenosis. There is no aortic valve regurgitation. Pulmonic Valve There is no pulmonic regurgitation. Mitral Valve There is no mitral valve stenosis. There is mild mitral valve regurgitation. Tricuspid Valve There is trace tricuspid valve regurgitation. No pulmonary hypertension, estimated pulmonary arterial systolic pressure is 26 mmHg. Pericardium/Pleural There is no pericardial effusion. Inferior Vena Cava Normal inferior vena cava with >50% collapse upon inspiration consistent with normal right atrial pressure, 5 mmHg. Aorta The aortic root size at the sinus of Valsalva is normal. Left Ventricular Outflow Tract Name Value Normal LVOT 2D LVOT Diameter 2.1 cm LVOT Doppler LVOT Peak Velocity 94 cm/s LVOT Peak Gradient 4 mmHg LVOT Mean Gradient 2 mmHg LVOT VTI 19 cm LVOT VTI/AV VTI Ratio 0.8 LVOT Stroke Volume 65 ml LVOT CO 13.9 l/min LVOT CI 5.9 l/min/m2 Pulmonic Valve Name Value Normal PV Doppler PV Peak Velocity 97 cm/s PV Peak Gradient 4 mmHg Mitral Valve Name Value Normal MV Diastolic Function MV E Peak Velocity 88 cm/s MV A Peak Velocity 53 cm/s MV E/A 1.7 MV Decel Time (PW) 191 ms MV Annular TDI MV E/e' (Septal) 7.9 MV E/e' (Lateral) 7.4 MV E/e' (Average) 7.6 Tricuspid Valve Name Value Normal TV Regurgitation Doppler TR Peak Velocity 231 cm/s TR Peak Gradient 21 mmHg Estimated PAP/RSVP RA Pressure 5 mmHg <=5 PA Systolic Pressure 26 mmHg <36 RV Systolic Pressure 26 mmHg <36 TV Annular TDI TV Lateral Kait s' Velocity 15.2 cm/s >=9.5 Aorta Name Value Normal Ascending Aorta Ao Root Diameter (MM) 2.9 cm Ao Root Diam Index (MM) 1.2 cm/m2 Aortic Valve Name Value Normal AV Doppler AV Peak Velocity 104 cm/s AV Peak Gradient 4 mmHg AV Mean Gradient 3 mmHg AV VTI 23 cm AV Area (Cont Eq VTI) 2.9 cm2 >=3.0 AV Area (Cont Eq Shiraz) 3.1 cm2 AV DI (Shiraz) 0.90 AV Regurgitation 2D LVOT Area 3.4 cm2 Ventricles Name Value Normal LV Dimensions 2D/MM IVS Diastolic Thickness (2D) 1.0 cm 0.6-1.0 LVID Diastole (2D) 4.7 cm 4.2-5.8 LVIW Diastolic Thickness (2D) 1.1 cm 0.6-1.0 LVID Systole (2D) 2.8 cm 2.5-4.0 LVOT Diameter 2.1 cm LV Mass (2D Cubed) 171.98 g 88.00-224.00 LV Mass Index (2D Cubed) 73 g/m2 49-115 Relative Wall Thickness (2D) 0.45 <=0.42 LV Fractional Shortening/Ejection Fraction 2D/MM LV Fractional Shortening (2D) 40 % 25-43 LV EF (2D Teichholz) 70 % LV Diastolic Volume (4C MOD) 137 ml LV EF (4C MOD) 66 % LV Diastolic Volume (2C MOD) 93 ml LV EF (2C MOD) 55 % LV Diastolic Volume (BP MOD) 121 ml 62-150 LV Diastolic Volume Index (BP MOD) 51 ml/m2 34-74 LV Systolic Volume (BP MOD) 44 ml 21-61 LV Systolic Volume Index (BP MOD) 19 ml/m2 11-31 LV EF (BP MOD) 63 % 52-72 LV Diastolic Length (4C) 8.9 cm LV Systolic Length (4C) 6.5 cm LV Stroke Volume (4C MOD) 91 ml RV Dimensions 2D/MM RVID Diastole (2D) 3.9 cm 2.1-3.5 Atria Name Value Normal LA Dimensions LA Dimension (MM) 3.7 cm 3.0-4.0 LA Volume (4C A-L) 47 ml LA Volume (BP A-L) 44 ml RA Dimensions RA Systolic Major Lejunior Length (4C) 4.5 cm 2.1-2.7 RA Area (4C) 14.3 cm2 <=18.0 Report Signatures
[2024-10-02 05:05] LABS: Anion Gap 7 mmol/L (4-12); Blood Urea Nitrogen 9 mg/dL (9-20); Calcium 9.2 mg/dL (8.4-10.2); Carbon Dioxide 26 mmol/L (22-30); Chloride 105 mmol/L (98-107); Estimated CRCL calculation 137 ml/min; Estimated Glomerular Filt Rate > 60; Glucose 91 mg/dL (65-110); Magnesium 2.2 mg/dL (1.6-2.3); Potassium 3.5 mmol/L (3.4-5.0); Sodium 138 mmol/L (137-145)
--- NOTE | 2024-10-02 05:55 | ECG_ITS ---
Test Date: 2024-10-02 06:05:13 Measurements Intervals [place] Rate: 60 P: 12 ID: 140 QRS: 16 QRSD: 94 T: 10 QT: 410 QTc: 412 Interpretive Statements SINUS RHYTHM WITHIN NORMAL LIMITS Compared to ECG 10/01/2024 13:27:43 SINUS RHYTHM REPLACES ATRIAL FIBRILLATION Electronically Signed On 10-02-2024 07:45:23 CDT by Darrick Barron M.D.
[2024-10-02] MEDS: dilTIAZem 100 MG/100 ML 100 MG/100 ML BAG IV CONT (06:26)
--- NOTE | 2024-10-02 08:13 | P.PNIM_ITS ---
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 Shortly after getting up this morning he started to experience palpitations which he describes as an irregular heartbeat with ?frequent fluctuations.? Overall he was just not feeling well with that and reports some feelings of lightheadedness so he went to lie down for a bit. After couple of hours he got up but he was still having the palpitations. checked his vital signs and his blood pressure was about 100/70 which is lower than what he typically runs. Pulse was variable in the low 100s up to 125 beats per minute. With further questioning he does report having intermittent episodes similar to the fluctuating heart rate over the past year so however that has been rare and is self-limiting, usually lasting only 5 minutes or so. He and his have a at home and he admits that he has not been sleeping great. At baseline he drinks 1 monster drink a day but he has 2 on occasion depending on how he has slept overnight. Rare alcohol use. No known history of thyroid disease, sleep apnea (endorses snoring), or history of chemotherapy-induced cardiotoxicity. He has not had any exertional chest pain and has never had a stress test though he goes on to say that his father had his 1st IN in his early 40s. In the ED: He was in rapid atrial fibrillation with a rate of 160 on arrival. Blood pressure was 127/97. CMP, CBC, and TSH were within normal limits and troponin was undetectable. EKG showed atrial fibrillation with rapid ventricular response with a rate of 170 and nonspecific T-wave abnormalities. He received a diltiazem bolus with some improvement his rate and has been started on a diltiazem drip. He is being admitted to the IMU in this setting for further treatment and workup. Atrial fibrillation with rapid ventricular rate: He received a diltiazem bolus and was started on a drip with some improvement in his rate. There is no current indication for anticoagulation. Precipitating etiology is not entirely clear but may be related to lack of sleep and increased caffeine intake after the addition of a into the household. TSH normal. Echo ordered. Apnea link test ordered. Remains on diltiazem 5 milligram/hour Remote history of AML treated greater than 5 years ago. Family history of premature coronary artery disease COVID prophylaxis enoxaparin Code status full code Subjective Date/time seen: 10/02/24 08:13 Interval history: No overnight events. Back to sinus rhythm. Denies any shortness of breath or chest pain. Review of Systems Review of Systems: All systems reviewed & are unremarkable except as noted in HPI and below Exam Narrative: General: Nontoxic-appearing male in the semi-Nava position in bed in no acute distress. HEENT: PERRL, EOMI. Sclera anicteric. Oral mucosa moist. Oropharynx clear. Neck: Supple. Respiratory: Lungs are clear to auscultation bilaterally. Cardiovascular: Regular rate and rhythm Gastrointestinal: Abdomen is soft, nontender, and nondistended with positive bowel sounds. Skin: Warm and dry. No rash or lesions on limited exam. Extremities: No cyanosis, clubbing, or edema. Radial and pedal pulses intact. Neurological: Alert. Cranial nerves 2-12 are grossly intact. No gross focal deficits to casual conversation. Psychiatric: Pleasant and cooperative with normal mood and affect. Judgment and insight intact. Objective Data Vital Signs Vital Signs: Vital Signs - 24 hr 10/01/24 13:25 10/01/24 13:44 10/01/24 14:04 Temperature 98.2 F Pulse Rate 89 160 H 141 H Respiratory Rate 16 17 Blood Pressure 127/97 H Pulse Oximetry 100 98 Oxygen Delivery Fraction of Inspired Oxygen 10/01/24 14:20 10/01/24 14:25 10/01/24 14:30 Temperature Pulse Rate 156 H 128 H 138 H Respiratory Rate 21 H 17 Blood Pressure 110/80 Pulse Oximetry 97 96 Oxygen Delivery Fraction of Inspired Oxygen 10/01/24 14:31 10/01/24 14:45 10/01/24 15:00 Temperature Pulse Rate 148 H 132 H 166 H Respiratory Rate 25 H 20 25 H Blood Pressure 120/99 H Pulse Oximetry 97 96 96 Oxygen Delivery Fraction of Inspired Oxygen 10/01/24 15:01 10/01/24 15:01 10/01/24 15:28 Temperature Pulse Rate 162 H 146 H 125 H Respiratory Rate 31 H 19 Blood Pressure 118/69 118/69 Pulse Oximetry 97 95 Oxygen Delivery Fraction of Inspired Oxygen 10/01/24 15:31 10/01/24 15:32 10/01/24 15:52 Temperature Pulse Rate 129 H 145 H 122 H Respiratory Rate 21 H 17 20 Blood Pressure 108/81 Pulse Oximetry 95 95 98 Oxygen Delivery Fraction of Inspired Oxygen 10/01/24 15:54 10/01/24 16:00 10/01/24 16:01 Temperature Pulse Rate 120 H 105 H 95 Respiratory Rate 13 18 23 H Blood Pressure 99/73 L 107/72 Pulse Oximetry 97 96 95 Oxygen Delivery Fraction of Inspired Oxygen 10/01/24 16:16 10/01/24 16:44 10/01/24 17:45 Temperature 98.9 F Pulse Rate 117 H 122 H 83 Respiratory Rate 18 15 18 Blood Pressure 116/92 H 104/60 125/82 Pulse Oximetry 94 96 97 Oxygen Delivery Fraction of Inspired Oxygen 10/01/24 17:45 10/01/24 18:00 10/01/24 19:10 Temperature Pulse Rate 83 113 H 144 H Respiratory Rate Blood Pressure 125/82 130/84 Pulse Oximetry Oxygen Delivery Fraction of Inspired Oxygen 10/01/24 20:00 10/01/24 20:00 10/01/24 20:00 Temperature 98.2 F Pulse Rate 131 H 131 H Respiratory Rate 16 Blood Pressure 127/85 127/85 Pulse Oximetry 98 Oxygen Delivery Room Air Fraction of Inspired Oxygen 10/01/24 20:00 10/01/24 22:00 10/01/24 22:10 Temperature Pulse Rate 116 H 118 H 119 H Respiratory Rate Blood Pressure 122/82 Pulse Oximetry Oxygen Delivery Fraction of Inspired Oxygen 10/01/24 23:51 10/02/24 00:00 10/02/24 00:00 Temperature 97.8 F Pulse Rate 110 H 118 H Respiratory Rate 16 Blood Pressure 122/75 Pulse Oximetry 100 Oxygen Delivery Room Air Fraction of Inspired Oxygen 10/02/24 00:00 10/02/24 02:00 10/02/24 02:00 Temperature Pulse Rate 110 H 133 H 113 H Respiratory Rate Blood Pressure 122/75 104/86 Pulse Oximetry Oxygen Delivery Fraction of Inspired Oxygen 10/02/24 02:18 10/02/24 03:40 10/02/24 04:00 Temperature 98.6 F Pulse Rate 133 H 141 H Respiratory Rate 16 Blood Pressure 104/86 144/73 H Pulse Oximetry 97 Oxygen Delivery Room Air Fraction of Inspired Oxygen 10/02/24 04:00 10/02/24 04:40 10/02/24 06:00 Temperature Pulse Rate 107 H 98 65 Respiratory Rate Blood Pressure Pulse Oximetry Oxygen Delivery Fraction of Inspired Oxygen 10/02/24 06:04 10/02/24 06:12 10/02/24 06:26 Temperature Pulse Rate 107 H 69 67 Respiratory Rate Blood Pressure 144/73 H 107/77 Pulse Oximetry Oxygen Delivery Fraction of Inspired Oxygen 10/02/24 07:49 10/02/24 08:10 Temperature 98 F Pulse Rate 67 Respiratory Rate 14 Blood Pressure 118/76 Pulse Oximetry 98 98 Oxygen Delivery Room Air Fraction of Inspired Oxygen 21 Intake/Output Intake/Output: Intake & Output 09/29/24 09/30/24 10/01/24 10/02/24 23:59 23:59 23:59 23:59 Intake Total 1060.7 970.0 Output Total 950 Balance 1060.7 20.0 Meds/Results Medications: Active Medications Generic Name Dose Route Start Last Admin Trade Name Freq PRN Reason Stop Dose Admin Acetaminophen 650 mg 10/01/24 17:20 Acetaminophen 325 Mg Tablet PO Q6H PRN Mild Pain (1-3) or Fever Enoxaparin Sodium 40 mg 10/02/24 09:00 Enoxaparin 40 Mg/0.4 Ml Syringe SUB-Q DAILY DIANA Diltiazem HCl 100 mg in 100 mls @ 5 mls/hr 10/01/24 18:10 10/02/24 06:26 Cardizem 100 Mg/100 Ml IV CONT 5 mg/hr .Q20H DIANA 5 mls/hr Administration 5 MG/HR Melatonin 10 mg 10/01/24 21:26 Melatonin 5 Mg Tablet PO HS PRN Insomnia Perflutren Lipid Microsphere 0 ml 10/01/24 17:20 Perflutren Lipid Microspheres 1.5 Ml Vial Diluted To 10 Ml Total Volume IV PUSH 10/04/24 17:20 ONCE PRN adequate visualization Protocol Radiology Results: ITS Impressions Chest X-Ray 10/01/24 14:22 IMPRESSION: No focal infiltrate or effusion. Labs Labs: Laboratory Results - last 24 hr 10/01/24 10/01/24 10/02/24 13:45 16:49 04:12 WBC 8.5 RBC 5.01 Hgb 15.7 Hct 47.4 MCV 94.6 MCH 31.3 MCHC 33.1 RDW 12.4 Plt Count 241 MPV 10.6 H Immature Gran % (Auto) 0.4 Neut % (Auto) 74.0 H Lymph % (Auto) 19.2 [place] % (Auto) 5.2 Eos % (Auto) 0.8 Baso % (Auto) 0.4 Lymph # (Auto) 1.64 [place] # (Auto) 0.4 Eos # (Auto) 0.1 Baso # (Auto) 0.0 Abs Immat Gran (auto) 0.03 Absolute Neuts (auto) 6.3 Absolute Nucleated RBC 0.000 Nucleated RBC % 0.0 PT 12.9 INR 0.9 APTT 21.9 L D-Dimer < 0.27 Sodium 138 138 Potassium 4.0 3.5 Chloride 104 105 Carbon Dioxide 25 26 Anion Gap 9 7 BUN 12 9 Creatinine 0.79 0.74 Estim Creat Clear Calc 142 137 Estimated GFR > 60 > 60 Glucose 133 H 91 Calcium 9.4 9.2 Magnesium 2.2 Total Bilirubin 0.7 AST 37 ALT 46 Alkaline Phosphatase 75 Troponin I < 0.012 < 0.012 Total Protein 8.0 Albumin 4.7 Lipase 96 TSH (Reflex) 0.851
[2024-10-02] MEDS: ENOXAPARIN 40 MG/0.4 ML SYRINGE SUB-Q (08:55)
--- NOTE | 2024-10-02 11:34 | P.CONCA_ITS ---
Assessment and Plan Assessment and plan (1) Atrial fibrillation with rapid ventricular response: Code(s): I48.91 - Unspecified atrial fibrillation Status: Acute Plan 34-year-old man with hypertension obesity and history suspicious for possible sleep apnea. He presents to the hospital with symptomatic atrial fib with RVR. He is currently back in sinus rhythm after being treated with diltiazem overnight. He normally takes amlodipine as his antihypertensive. I am going to stop the IV diltiazem drip today and start metoprolol succinate. An echocardiogram has just been done this morning the results of that are pending. In my opinion he is stable enough for discharge. He indicates the hospitalist are considering keeping him in the hospital tonight to perform an overnight sleep study. I will arrange for timely follow-up in my office to assess his response to beta-narcisa and review echocardiographic findings. Given his very low chads Vasc score he does not need to be anticoagulated Darrick Barron MD [facility] History of Present Illness History of Present Illness Consult date/time: 10/02/24 11:34 Reason For Visit: Atrial fibrillation w/rapid ventricular response Narrative: This is a 34-year-old man I am seeing at the request of the hospitalist because of atrial fibrillation. He has no previous knowledge of any cardiac problems or diagnosis. This gentleman is hospitalized because of symptoms of feeling unwell with lightheadedness and sense of palpitations that started yesterday morning when he got out of bed. He says he has had similar episodes like this in the past than self limited but yesterday the symptoms persisted for the whole morning any are early afternoon he came to the hospital emergency room for evaluation. He is not in any other distress with chest pain shortness of breath etc.. He has never had a syncopal episode. In the emergency room was found to be in atrial fib with rapid ventricular response and of course he is placed on intravenous diltiazem and admitted to the hospital. Yesterday evening he converted to sinus rhythm he became asymptomatic after that and he is asymptomatic this morning and feels well. He still has IV diltiazem infusing. He knows of no other ongoing medical problems other than hypertension he is not a smoker and has no family history of probable into, premature ischemic heart disease. 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 He is and has a daughter at home, their 1st child. He does report a history of snoring at night he does not have any history of apnea that his has ever mentioned to him Review of Systems 2 Constitutional: Constitutional: Reports no additional constitutional complaints Eyes: Eyes: Reports no additional eye complaints ENT: Reports system reviewed and no additional complaints, except as documented Cardiovascular: Cardiovascular: Reports palpitations Respiratory: Respiratory: Reports dyspnea Gastrointestinal: Gastrointestinal: Reports no additional gastrointestinal complaints Musculoskeletal: Musculoskeletal: Reports no additional musculoskeletal complaints Integumentary/Breasts: Skin/Breast: Reports system reviewed and no additional complaints, except as docu Neurologic: Reports system reviewed and no additional complaints, except as documented Endocrine: Endocrine: Reports no additional endocrine complaints Hematologic/Lymphatic: Hematologic/Lymphatic: Reports no additional hematologic/lymphatic complaints Allergic/Immunologic: Allergic/Immunologic: Reports no additional allergic/immunologic complaints [facility] Past Medical History Medical History Acute myeloid leukemia in remission since 2019 Hypertension Surgical History Surgical History (Updated 10/01/24 @ 23:18 by Annalisa Wan PA-C) History of hernia repair Family History Family History (Updated 10/01/24 @ 23:18 by Annalisa Wan PA-C) Other Heart disease Social History Social History Social History: Surrogate medical decision maker: Elda Harrison, spouse. Code status: Full code. Smoking status: Never smoker Second hand tobacco smoke exposure: Yes Alcohol intake: current Drinks per week: 0 Do You Feel Safe in your Home?: Yes Lack of Transportation: No Lack of Food: Never True Current Housing: I Have Housing Concerned About Future Housing: No Difficulty Paying Gas/Electric Bills: No Difficulty Paying for Meds: No Currently Unemployed: No Education: Associate Degree Difficulty w/ Childcare or Family Care: No Spiritual care concerns: No Meds Home Medications and Allergies Home Medications ?Medication ?Instructions ?Recorded ?Confirmed ?Type amlodipine 5 mg tablet 5 mg PO DAILY 10/01/24 10/01/24 History Allergies Allergy/AdvReac Type Severity Reaction Status Date / Time No Known Drug Allergies Allergy Unknown Other Verified 10/01/24 13:49 Vital Signs Vital Signs - 24 hr 10/01/24 13:25 10/01/24 13:44 10/01/24 14:04 Temperature 36.8 C Pulse Rate 89 160 H 141 H Respiratory Rate 16 17 Blood Pressure 127/97 H Pulse Oximetry 100 98 Oxygen Delivery Fraction of Inspired Oxygen 10/01/24 14:20 10/01/24 14:25 10/01/24 14:30 Temperature Pulse Rate 156 H 128 H 138 H Respiratory Rate 21 H 17 Blood Pressure 110/80 Pulse Oximetry 97 96 Oxygen Delivery Fraction of Inspired Oxygen 10/01/24 14:31 10/01/24 14:45 10/01/24 15:00 Temperature Pulse Rate 148 H 132 H 166 H Respiratory Rate 25 H 20 25 H Blood Pressure 120/99 H Pulse Oximetry 97 96 96 Oxygen Delivery Fraction of Inspired Oxygen 10/01/24 15:01 10/01/24 15:01 10/01/24 15:28 Temperature Pulse Rate 162 H 146 H 125 H Respiratory Rate 31 H 19 Blood Pressure 118/69 118/69 Pulse Oximetry 97 95 Oxygen Delivery Fraction of Inspired Oxygen 10/01/24 15:31 10/01/24 15:32 10/01/24 15:52 Temperature Pulse Rate 129 H 145 H 122 H Respiratory Rate 21 H 17 20 Blood Pressure 108/81 Pulse Oximetry 95 95 98 Oxygen Delivery Fraction of Inspired Oxygen 10/01/24 15:54 10/01/24 16:00 10/01/24 16:01 Temperature Pulse Rate 120 H 105 H 95 Respiratory Rate 13 18 23 H Blood Pressure 99/73 L 107/72 Pulse Oximetry 97 96 95 Oxygen Delivery Fraction of Inspired Oxygen 10/01/24 16:16 10/01/24 16:44 10/01/24 17:45 Temperature 37.2 C Pulse Rate 117 H 122 H 83 Respiratory Rate 18 15 18 Blood Pressure 116/92 H 104/60 125/82 Pulse Oximetry 94 96 97 Oxygen Delivery Fraction of Inspired Oxygen 10/01/24 17:45 10/01/24 18:00 10/01/24 19:10 Temperature Pulse Rate 83 113 H 144 H Respiratory Rate Blood Pressure 125/82 130/84 Pulse Oximetry Oxygen Delivery Fraction of Inspired Oxygen 10/01/24 20:00 10/01/24 20:00 10/01/24 20:00 Temperature 36.8 C Pulse Rate 131 H 131 H Respiratory Rate 16 Blood Pressure 127/85 127/85 Pulse Oximetry 98 Oxygen Delivery Room Air Fraction of Inspired Oxygen 10/01/24 20:00 10/01/24 22:00 10/01/24 22:10 Temperature Pulse Rate 116 H 118 H 119 H Respiratory Rate Blood Pressure 122/82 Pulse Oximetry Oxygen Delivery Fraction of Inspired Oxygen 10/01/24 23:51 10/02/24 00:00 10/02/24 00:00 Temperature 36.6 C Pulse Rate 110 H 118 H Respiratory Rate 16 Blood Pressure 122/75 Pulse Oximetry 100 Oxygen Delivery Room Air Fraction of Inspired Oxygen 10/02/24 00:00 10/02/24 02:00 10/02/24 02:00 Temperature Pulse Rate 110 H 133 H 113 H Respiratory Rate Blood Pressure 122/75 104/86 Pulse Oximetry Oxygen Delivery Fraction of Inspired Oxygen 10/02/24 02:18 10/02/24 03:40 10/02/24 04:00 Temperature 37.0 C Pulse Rate 133 H 141 H Respiratory Rate 16 Blood Pressure 104/86 144/73 H Pulse Oximetry 97 Oxygen Delivery Room Air Fraction of Inspired Oxygen 10/02/24 04:00 10/02/24 04:40 10/02/24 06:00 Temperature Pulse Rate 107 H 98 65 Respiratory Rate Blood Pressure Pulse Oximetry Oxygen Delivery Fraction of Inspired Oxygen 10/02/24 06:04 10/02/24 06:12 10/02/24 06:26 Temperature Pulse Rate 107 H 69 67 Respiratory Rate Blood Pressure 144/73 H 107/77 Pulse Oximetry Oxygen Delivery Fraction of Inspired Oxygen 10/02/24 07:49 10/02/24 08:00 10/02/24 08:00 Temperature 36.6 C Pulse Rate 67 75 75 Respiratory Rate 14 Blood Pressure 118/76 118/76 Pulse Oximetry 98 Oxygen Delivery Fraction of Inspired Oxygen 10/02/24 08:10 10/02/24 10:00 Temperature Pulse Rate Respiratory Rate Blood Pressure 120/74 Pulse Oximetry 98 Oxygen Delivery Room Air Fraction of Inspired Oxygen 21 Exam 2 Const: General: comfortable and no acute distress Other: Pleasant obese young man no apparent distress HENMT: Mouth: Yes moist mucous membranes Eyes: Sclera: sclerae normal Neck: Neck: supple and no JVD Resp: Effort & Inspection: normal respiratory effort Auscultation: clear to auscultation bilaterally Cardio: Rate: regular rate Rhythm: regular rhythm Other: PMI is nondisplaced and of normal activity no murmur no gallop GI: GI Palp: Yes Soft to palpation Auscultation: normal bowel sounds Skin: General skin exam: normal color Neuro: Other: Alert and oriented x3 Extrem: General: normal to inspection Results Labs and Meds 10/01/24 13:45 10/02/24 04:12 Lab results: Cardiac Enzymes 10/01/24 10/01/24 Range/Units 13:45 16:49 AST 37 (17-59) U/L Troponin I < 0.012 < 0.012 (0.000-0.034) ng/mL Coagulation 10/01/24 Range/Units 13:45 PT 12.9 (11.1-14.7) Seconds APTT 21.9 L (22.3-36.8) Seconds CBC 10/01/24 Range/Units 13:45 WBC 8.5 (4.5-10.0) K/mm3 RBC 5.01 (4.6-6.20) M/mm3 Hgb 15.7 (14.0-18.0) g/dL Hct 47.4 (42.0-52.0) % Plt Count 241 (150-375) k/mm3 Lymph # (Auto) 1.64 (0.9-3.2) K/mm3 [place] # (Auto) 0.4 (0.1-0.6) K/mm3 Eos # (Auto) 0.1 (0-0.3) K/mm3 Baso # (Auto) 0.0 (0.0-0.1) K/mm3 Comprehensive Metabolic Panel 10/01/24 10/02/24 Range/Units 13:45 04:12 Sodium 138 138 (137-145) mmol/L Potassium 4.0 3.5 (3.4-5.0) mmol/L Chloride 104 105 (98-107) mmol/L Carbon Dioxide 25 26 (22-30) mmol/L BUN 12 9 (9-20) mg/dL Creatinine 0.79 0.74 (0.7-1.3) mg/dL Glucose 133 H 91 (65-110) mg/dL Calcium 9.4 9.2 (8.4-10.2) mg/dL AST 37 (17-59) U/L ALT 46 (6-50) U/L Alkaline Phosphatase 75 (38-126) U/L Total Protein 8.0 (6.3-8.2) g/dL Albumin 4.7 (3.5-5.1) g/dL Intake and Output 10/01/24 10/02/24 10/02/24 23:59 07:59 15:59 Intake Total 57.3 970.0 307.8 Output Total 950 Balance 57.3 20.0 307.8 Intake: IV 57.3 70.0 7.8 dilTIAZem 100 MG/100 ML 100 mg 57.3 70.0 7.8 In 100 ml @ 10 MG/HR 10 mls/hr IV CONT .Q10H [facility] Rx#:[id number] Oral 900 300 Output: Urine 950 Other: # Unmeasured Voids 2 Patient Weight 10/02/24 23:59 Weight 101.8 kg
[2024-10-02] MEDS: METOPROLOL SUCCINATE EXT REL 50 MG TABCR PO (12:03)
--- NOTE | 2024-10-02 13:10 | P.DS_ITS ---
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 Shortly after getting up this morning he started to experience palpitations which he describes as an irregular heartbeat with ?frequent fluctuations.? Overall he was just not feeling well with that and reports some feelings of lightheadedness so he went to lie down for a bit. After couple of hours he got up but he was still having the palpitations. checked his vital signs and his blood pressure was about 100/70 which is lower than what he typically runs. Pulse was variable in the low 100s up to 125 beats per minute. With further questioning he does report having intermittent episodes similar to the fluctuating heart rate over the past year so however that has been rare and is self-limiting, usually lasting only 5 minutes or so. He and his have a at home and he admits that he has not been sleeping great. At baseline he drinks 1 monster drink a day but he has 2 on occasion depending on how he has slept overnight. Rare alcohol use. No known history of thyroid disease, sleep apnea (endorses snoring), or history of chemotherapy-induced cardiotoxicity. He has not had any exertional chest pain and has never had a stress test though he goes on to say that his father had his 1st [place] in his early 40s. In the ED: He was in rapid atrial fibrillation with a rate of 160 on arrival. Blood pressure was 127/97. CMP, CBC, and TSH were within normal limits and troponin was undetectable. EKG showed atrial fibrillation with rapid ventricular response with a rate of 170 and nonspecific T-wave abnormalities. He received a diltiazem bolus with some improvement his rate and has been started on a dilt iazem drip. He is being admitted to the IMU in this setting for further treatment and workup. Atrial fibrillation with rapid ventricular rate: He received a diltiazem bolus and was started on a drip with some improvement in his rate. There is no current indication for anticoagulation. Precipitating etiology is not entirely clear but may be related to lack of sleep and increased caffeine intake after the addition of a into the household. TSH normal. Echo ordered. Apnea link test ordered however wanted to perform outpatient basis. Remains on diltiazem 5 milligram/hour which was switched to oral metoprolol per Cardiology. Follow up with Cardiology as an outpatient basis. Remote history of AML treated greater than 5 years ago. Family history of premature coronary artery disease COVID prophylaxis enoxaparin Code status full code Time Spent with Patient Time attestation: Total time spent providing and/or coordinating discharge services: 35 minutes Exam Narrative: General: Nontoxic-appearing male in the semi-Nava position in bed in no acute distress. HEENT: PERRL, EOMI. Sclera anicteric. Oral mucosa moist. Oropharynx clear. Neck: Supple. Respiratory: Lungs are clear to auscultation bilaterally. Cardiovascular: Regular rate and rhythm Gastrointestinal: Abdomen is soft, nontender, and nondistended with positive bowel sounds. Skin: Warm and dry. No rash or lesions on limited exam. Extremities: No cyanosis, clubbing, or edema. Radial and pedal pulses intact. Neurological: Alert. Cranial nerves 2-12 are grossly intact. No gross focal deficits to casual conversation. Psychiatric: Pleasant and cooperative with normal mood and affect. Judgment and insight intact. DS: Data Data Completed and Pending Completed studies during hospitalization: Exam Type: CA echo doppler color flow Complete two-dimensional, color flow and Doppler transthoracic echocardiogram is performed. Staff Referring Physician: Tanesha Gongora PAC Installation And Service Technician: Bushra Perea Attending Provider: Moy Chairez Summary 1. Complete two-dimensional, color flow and Doppler transthoracic echocardiogram is performed. 2. Left ventricular chamber dimension is normal. 3. Left ventricular systolic function is normal, estimated at 60-65. 4. The left ventricular diastolic function is normal. 5. E/e' 7 is not elevated. 6. There is mild mitral valve regurgitation. 7. There is trace tricuspid valve regurgitation. 8. No pulmonary hypertension, estimated pulmonary arterial systolic pressure is 26 mmHg. Left Ventricle Left ventricular chamber dimension is normal. Left ventricular systolic function is normal, estimated at 60-65. The left ventricular diastolic function is normal. E/e' 7 is not elevated. Right Ventricle Right ventricular chamber dimension is normal. Right ventricular systolic function is normal. Left Atria Left atrial chamber dimension is normal. Right Atria Right atrial chamber dimension is normal. Aortic Valve The aortic valve is trileaflet. There is no aortic valve stenosis. There is no aortic valve regurgitation. Pulmonic Valve There is no pulmonic regurgitation. Mitral Valve There is no mitral valve stenosis. There is mild mitral valve regurgitation. Tricuspid Valve There is trace tricuspid valve regurgitation. No pulmonary hypertension, estimated pulmonary arterial systolic pressure is 26 mmHg. Pericardium/Pleural There is no pericardial effusion. Inferior Vena Cava Normal inferior vena cava with >50% collapse upon inspiration consistent with normal right atrial pressure, 5 mmHg. Aorta The aortic root size at the sinus of Valsalva is normal. Labs on day of discharge: Labs from last 24 hours 10/02/24 10/01/24 10/01/24 04:12 16:49 13:45 WBC 8.5 RBC 5.01 Hgb 15.7 Hct 47.4 MCV 94.6 MCH 31.3 MCHC 33.1 RDW 12.4 Plt Count 241 MPV 10.6 H Immature Gran % (Auto) 0.4 Neut % (Auto) 74.0 H Lymph % (Auto) 19.2 [place] % (Auto) 5.2 Eos % (Auto) 0.8 Baso % (Auto) 0.4 Lymph # (Auto) 1.64 [place] # (Auto) 0.4 Eos # (Auto) 0.1 Baso # (Auto) 0.0 Abs Immat Gran (auto) 0.03 Absolute Neuts (auto) 6.3 Absolute Nucleated RBC 0.000 Nucleated RBC % 0.0 PT 12.9 INR 0.9 APTT 21.9 L D-Dimer < 0.27 Sodium 138 138 Potassium 3.5 4.0 Chloride 105 104 Carbon Dioxide 26 25 Anion Gap 7 9 BUN 9 12 Creatinine 0.74 0.79 Estim Creat Clear Calc 137 142 Estimated GFR > 60 > 60 Glucose 91 133 H Calcium 9.2 9.4 Magnesium 2.2 Total Bilirubin 0.7 AST 37 ALT 46 Alkaline Phosphatase 75 Troponin I < 0.012 < 0.012 Total Protein 8.0 Albumin 4.7 Lipase 96 TSH (Reflex) 0.851 Imaging Radiologist's impression: ITS Impressions Chest X-Ray 10/01/24 14:22 IMPRESSION: No focal infiltrate or effusion. Discharge Plan Discharge Attending physician on discharge: Moy Chairez Consulting providers: Darrick Barron Discharging Clinician: Moy Chairez Anticipated Discharge Date/Time: 10/02/24 13:11 Patient Disposition: Home Activity: as tolerated Diet: heart healthy Patient Instructions: Antibiotic Form, A-fib (Atrial Fibrillation) (DC) Patient Language: Salvadorean Stand Alone Forms: General Discharge Information Follow-up/Referrals: Darrick Barron MD [Physician] - 2 Weeks Rod,Brian Diaz DO [Primary Care Provider] - 1 Week Discharge Medications: New metoprolol succinate 50 mg Tablet Extended Release 24 Hr 50 mg PO QAM Qty: 30 0RF Continued amlodipine 5 mg tablet 5 mg PO DAILY Date of admission: 10/01/24 16:13 Primary Care Provider: Rod,Brian Diaz Admitting Provider: Moy Chairez Attending physician on admission: Moy Chairez Condition: Improved
== END 2024-10-02 14:30 | disposition home or self-care (01) ==
LOC: ANHED 16:13 → ANHIMU 16:46
PROVIDERS: Physician Assistant; Admitting Provider Internal Medicine; Emergency Provider Physician Assistant; PCP Family Medicine; Visit Provider Internal Medicine
DX: I48.91 Unspecified atrial fibrillation (principal); I10 Essential (primary) hypertension; Z85.6 Personal history of leukemia
CPT/HCPCS: 36415; 71046; 80048; 80053; 83690; 83735; 84443; 84484; 85025; 85380; 85610; 85730; 93005; 93306; 96365; 96366; 96372; 99285; A9270; G0378; J1650; J7030